=== PATIENT | female | born 1995 | race Caucasian/White ===

== ENCOUNTER 2020-12-09 07:58 | Day surgery (SDC) | payer OTHER ==
[2020-12-08 09:36] LABS: BASOPHILS % (AUTO) 0 % (0-1); EOSINOPHILS % (AUTO) 2 % (1-7); LYMPHOCYTES % (AUTO) 19 % (22-44); MEAN CORPUSCULAR HEMOGLOBIN 30.2 pg (27.0-34.8); MEAN CORPUSCULAR HGB CONC 34.6 g/dL (32.4-35.8); MEAN PLATELET VOLUME 8.1 fL (7.4-10.4); MONOCYTES % (AUTO) 8 % (2-9); NEUTROPHILS % (AUTO) 70 % (42-75); PLATELET COUNT 201 x10^3/uL (130-400); RED BLOOD COUNT 4.84 x10^6/uL (3.82-5.3); RED CELL DISTRIBUTION WIDTH 12.8 % (9.6-15.2)
[2020-12-08 09:37] LABS: MD NO
[2020-12-08 09:42] LABS: MICROSCOPIC NOT IND
[2020-12-08 09:49] LABS: ALANINE AMINOTRANSFERASE 26 U/L (12-78); ANION GAP 7 mmol/L (5-15); CALCIUM 8.6 mg/dL (8.5-10.1); CHLORIDE 106 mmol/L (98-107); CREATININE 0.69 mg/dL (0.55-1.02)
[2020-12-08 10:06] LABS: ALKALINE PHOSPHATASE 69 U/L (45-117); BILIRUBIN,TOTAL 0.5 mg/dL (0.2-1.0); TOTAL PROTEIN 7.8 g/dL (6.4-8.2)
[~2020-12-09] VITALS: Ht 172.7 cm; Wt 63.1 kg
[~2020-12-09 07:58] MED LIST: FLUO20CA23 PO; PNV1TABL31 PO
[2020-12-09 08:51] VITALS: BP 130/83
[2020-12-09] MEDS ORDERED: CHLORHEXIDINE 15 ML UDC PO ONE (09:00)
[2020-12-09] MEDS ORDERED: LACTATED RINGERS 1,000 ML IV SCH (09:00)
[2020-12-09] MEDS ORDERED: METHYLERGONOVINE 0.2 MG/ML IM ONE (09:41)
[2020-12-09] MEDS ORDERED: OXYTOCIN 10 UNITS/ML, 1ML ONE (09:41)
[2020-12-09] MEDS ORDERED: MISOPROSTOL 200 MCG TABLET ONE (09:41)
[2020-12-09] MEDS ORDERED: FENTANYL PF 250 MCG/5ML ONE (09:53)
[2020-12-09] MEDS ORDERED: MIDAZOLAM 1 MG/ML, 2ML ONE (09:53)
[2020-12-09] MEDS ORDERED: ONDANSETRON 2MG/ML, 2ML ONE (09:54)
[2020-12-09] MEDS ORDERED: DEXAMETHASONE 4 MG/ML, 1ML ONE ×2 (09:54→10:00)
[2020-12-09] MEDS ORDERED: PROPOFOL 10 MG/ML, 20ML ONE (09:55)
[2020-12-09] MEDS ORDERED: HYDROmorphone 1 MG/ML, 1ML INJ IVPush PRN (10:00)
[2020-12-09] MEDS ORDERED: hydrALAzine 20 MG/ML, 1ML IV PRN (10:00)
[2020-12-09] MEDS ORDERED: PROMETHAZINE 25 MG/ML, 1ML IVPush PRN (10:00)
[2020-12-09] MEDS ORDERED: FENTANYL PF 100 MCG/2ML IV PRN (10:00)
[2020-12-09] MEDS ORDERED: ACETAMINOPHEN 325 MG TABLET PO PRN (10:00)
[2020-12-09] MEDS ORDERED: MEPERIDINE/PF 25MG/0.5ML IVPush PRN (10:00)
[2020-12-09] MEDS ORDERED: LABETALOL 5MG/ML, 20ML IV PRN (10:00)
[2020-12-09] MEDS ORDERED: ONDANSETRON 2MG/ML, 2ML IVPush PRN (10:00)
[2020-12-09] MEDS ORDERED: OXYcodone 5 MG/5 ML ORAL.SOL UDC PO PRN (10:00)
[2020-12-09] MEDS ORDERED: KETOROLAC 30 MG/1 ML ONE (10:22)
== END 2020-12-09 12:45 | disposition home or self-care (01) ==
LOC: OUT 07:58
PROVIDERS: ATTEND Obstetrics & Gynecology
DX: O02.0 Blighted ovum and nonhydatidiform mole (principal); F32.9 Major depressive disorder, single episode, unspecified; G43.909 Migraine, unspecified, not intractable, without status migrainosus; Z20.822 Contact with and (suspected) exposure to COVID-19
CPT/HCPCS: 36415; 59820; 80053; 81003; 84702; 85025; 86850; 86900; 88305; J1100; J1885; J2250; J2405; J2704; J3010; J7120; U0003; J2210; J2590

== ENCOUNTER 2021-05-31 10:01 | Day surgery (SDC) | payer OTHER ==
[~2021-05-31] VITALS: Ht 172.7 cm; Wt 65.0 kg
[2021-05-31 10:35] VITALS: BP 107/76
== END 2021-05-31 14:23 | disposition home or self-care (01) ==
LOC: OUT 10:01
PROVIDERS: ATTEND Obstetrics & Gynecology
DX: O02.0 Blighted ovum and nonhydatidiform mole (principal); Z20.822 Contact with and (suspected) exposure to COVID-19; Z88.8 Allergy status to other drugs, medicaments and biological substances; Z91.040 Latex allergy status
CPT/HCPCS: 36415; 59820; 80048; 84702; 85025; 86850; 86900; 88305; J0690; J2250; J2405; J2704; J3010; J7120; U0003; U0005